=== PATIENT | male | born 1935 | race Caucasian/White ===

== ENCOUNTER 2018-11-26 13:56 | Emergency (ER) | payer MEDICARE, BC ==
[2018-11-26 15:57] LABS: ADD MAN DIFF? NO
[2018-11-26 15:59] LABS: WHITE BLOOD COUNT 6.6 10^3/ul (4.8-10.8)
[2018-11-26 15:59] LABS: BASOPHIL # 0.1 10^3/ul (0.0-0.1); BASOPHILS % 0.8 % (0.0-2.0); EOSINOPHILS # 0.3 10^3/ul (0.0-0.5); EOSINOPHILS % 3.8 % (0.0-7.0); HEMATOCRIT 40.5 % (42.0-52.0); HEMOGLOBIN 13.4 g/dl (14.0-18.0); LYMPHOCYTES # 1.1 10^3/ul (0.8-2.9); MEAN CORPUSCULAR HEMOGLOBIN 27.6 pg (29.0-33.0); MEAN CORPUSCULAR HGB CONC 33.1 g/dl (32.0-37.0); MEAN CORPUSCULAR VOLUME 83.5 fl (82.0-101.0); MEAN PLATELET VOLUME 10.4 fl (7.4-10.4); MONOCYTE # 0.5 10^3/ul (0.3-0.9); MONOCYTES % 8.1 % (0.0-11.0); NEUTROPHIL # 4.7 10^3/ul (1.6-7.5); PLATELET COUNT 126 10^3/UL (140-415); POSITIVE DIFF @See below; RED BLOOD COUNT 4.85 10^6/ul (4.70-6.10); RED CELL DISTRIBUTION WIDTH 14.4 % (11.5-14.5)
[2018-11-26 16:17] LABS: ALANINE AMINOTRANSFERASE 38 IU/L (13-69); ALBUMIN 3.8 g/dl (3.3-4.9); ALBUMIN/GLOBULIN RATIO 1.31; ALKALINE PHOSPHATASE 88 IU/L (42-121); ANION GAP 9 (5-13); ASPARTATE AMINO TRANSFERASE 31 IU/L (15-46); BILIRUBIN,INDIRECT 0.8 mg/dl (0-1.1); BILIRUBIN,TOTAL 0.8 mg/dl (0.2-1.3); BLOOD UREA NITROGEN 37 mg/dl (7-20); CALCIUM 10.2 mg/dl (8.4-10.2); CARBON DIOXIDE 24 mmol/L (21-31); CHLORIDE 110 mmol/L (97-110); GLUCOSE 103 mg/dl (70-220); LIPASE 90 U/L (23-300); POTASSIUM 4.3 mmol/L (3.5-5.1); SODIUM 143 mmol/L (135-144); TOTAL PROTEIN 6.7 g/dl (6.1-8.1)
[2018-11-26 16:21] LABS: C-REACTIVE PROTEIN 1.1 mg/dl (0.0-0.9)
[2018-11-26 17:04] LABS: ERYTHROCYTE SEDIMENTATION RATE 20 mm/Hr (0-20)
[2018-11-26 17:36] LABS: ADD UMIC YES; UR ASCORBIC ACID 40 mg/dL (NEGATIVE); UR BILIRUBIN (Dip) NEGATIVE (NEGATIVE); UR BLOOD (Dip) NEGATIVE (NEGATIVE); UR CLARITY SLIGHTLY CLOUDY (CLEAR); UR COLOR YELLOW (YELLOW); UR GLUCOSE (Dip) NEGATIVE (NEGATIVE); UR KETONES (Dip) 1+ mg/dL (NEGATIVE); UR LEUKOCYTE ESTERASE (Dip) NEGATIVE Leu/ul (NEGATIVE); UR NITRITE (Dip) NEGATIVE (NEGATIVE); UR RBC 0 /HPF (0-5); UR SPECIFIC GRAVITY (Dip) 1.017 (1.003-1.030); UR TOTAL PROTEIN (Dip) 3+ mg/dl (NEGATIVE); UR UROBILINOGEN (Dip) NEGATIVE (NEGATIVE); UR WBC 3 /HPF (0-5)
[2018-11-26] MEDS: IODIXANOL LOCM 100 ML BTL (21:31)
[2018-11-26] MEDS: SOD CHLORIDE 0.9% 100 ML (21:31)
[2018-11-26] MEDS: IODIXANOL LOCM 50 ML BTL (21:31)
[2018-11-26] MEDS: SOD CHLORIDE 0.9% 1,000 ML IV (21:55)
[2018-11-27] MEDS: CEFEPIME 1GM/50 ML (PMX) 50 ML IVPB (00:49)
[2018-11-27] MEDS: FENTAnyl 50 MCG/ML VIAL IV (00:57)
[2018-11-27] MEDS: ONDANSETRON 4 MG INJ IV (01:01)
[2018-11-27] MEDS: morphine 2 MG INJ IV (01:01)
[2018-11-27] MEDS: VANCOMYCIN 1 GM (PMX) 250 ML IVPB (01:31)
[2018-11-27] MEDS ORDERED: DOCUSATE SODIUM 100 MG CAP PO (08:30)
[2018-11-27] MEDS ORDERED: HYDROCODONE/APAP (5/325) TAB PO ×2 (08:30)
[2018-11-27] MEDS ORDERED: NACL 0.9% 3 ML SYG IV (08:30)
[2018-11-27] MEDS ORDERED: VANCOMYCIN IV PER PHARMACY XX (08:30)
[2018-11-27] MEDS ORDERED: ONDANSETRON 4 MG INJ IV (08:30)
[2018-11-27] MEDS ORDERED: morphine 2 MG INJ IV (08:30)
[2018-11-27] MEDS ORDERED: ACETAMINOPHEN 325 MG TAB PO (08:30)
[2018-11-27] MEDS ORDERED: MAGNESIUM HYDROXIDE 30ML CUP PO (08:30)
[2018-11-27] MEDS: ASPIRIN (EC) 81 MG TAB PO (09:02)
[2018-11-27] MEDS: SOD CHLORIDE 0.9% 1,000 ML IV (09:02)
[2018-11-27] MEDS: HEPARIN 5,000 UNIT/1 ML VIAL SC (09:02)
[2018-11-27] MEDS: METOPROLOL 50 MG TAB PO (09:03)
[2018-11-27] MEDS: ALLOPURINOL 100 MG TAB PO (09:50)
[2018-11-27] MEDS: PREGABALIN 100 MG CAP PO (09:51)
[2018-11-27] MEDS: ASCORBIC ACID 500 MG TAB PO (09:51)
[2018-11-27] MEDS: CEFEPIME 2GM/50 ML (PMX) 50 ML IVPB (10:21)
[2018-11-27] MEDS ORDERED: VANCOMYCIN 750 MG (PMX) 250 ML IVPB (14:00)
[2018-11-27] MEDS ORDERED: ATORVASTATIN 10 MG TAB PO (21:00)
[2018-11-28] MEDS ORDERED: PANTOPRAZOLE (EC) 40 MG TAB PO (06:00)
== END 2018-11-27 11:31 | disposition home or self-care (01) ==
LOC: E/R 11-27 11:31
DX: R68.83 Chills (without fever) (principal); I10 Essential (primary) hypertension; Z79.82 Long term (current) use of aspirin; Z85.47 Personal history of malignant neoplasm of testis
CPT/HCPCS: 72128; 72131; 80053; 81001; 83690; 85025; 85651; 86140; 87040-91; 96365; 96366; 96367; 96372; 96375; 96376; 99285-25